=== PATIENT | female | born 1975 | race American Indian/Alaskan Native ===

== ENCOUNTER 2018-04-01 10:06 | Emergency (ER) | payer MEDICAID, SELFPAY ==
--- NOTE | 2018-04-01 11:10 | Emergency Department Report ---
ED Eye Problem HPI - General Chief complaint: Eye Problems Stated complaint: LEFT EYE PAIN Time Seen by Provider: 04/01/18 11:09 Source: patient Mode of arrival: Ambulatory Limitations: No Limitations - History of Present Illness Initial comments: 42-year-old female past medical history hypertension presents with complaint of left discomfort and left eye redness since this morning. Denies any trauma denies any foreign body sensation left eye denies any foreign body or liquid splash into the eye getting high. Patient denies headache blurry vision and nausea vomiting chest pain palpitations shortness of breath. Patient is awake alert and oriented 3 not in acute distress. Denies any paresthesias. No slurred speech no facial paresthesias no weakness reported by patient. Patient does not wear contact lenses. MD chief complaint: eye pain, eye redness, eye injury -: This morning Location: left eye Place: home Eye Symptoms: redness Severity: mild Consistency: constant Associated Symptoms: none Treatments Prior to Arrival: none - Related Data Patient Tetanus UTD: Yes Home Medications Medication Instructions Recorded Confirmed Last Taken Ferrous Sulfate 1 tab PO DAILY 09/27/13 09/27/13 09/26/13 Labetalol HCl 100 mg PO BID 09/27/13 09/27/13 09/26/13 22:30 100mg Pnv,Calcium 72/Iron/Folic Acid 1 tab PO DAILY 09/27/13 09/27/13 09/26/13 [Pnv Plus Multivit Tab] Previous Rx's Medication Instructions Recorded Last Taken Type Famotidine [Pepcid] 20 mg PO BID #60 tablet 03/14/14 Unknown Rx HYDROcodone/APAP 5-325 [[place] 1 each PO Q6HR PRN #20 tablet 03/14/14 Unknown Rx 5/325 mg] Hyoscyamine Subl [Levsin Sl] 0.125 mg PO Q6HR #20 tablet 03/14/14 Unknown Rx Ondansetron [Zofran] 4 mg PO Q6HR PRN #20 tablet 03/14/14 Unknown Rx Naphazoline HCl/Pheniramine 1 drop OP Q4H PRN #1 drops 04/01/18 Unknown Rx [Naphcon-A Eye Drops] Allergies Allergy/AdvReac Type Severity Reaction Status Date / Time No Known Allergies Allergy Verified 09/27/13 02:46 ED Review of Systems ROS: Stated complaint: LEFT EYE PAIN Other details as noted in HPI Constitutional: denies: chills, fever Eyes: as per HPI. denies: eye pain, eye discharge, vision change ENT: denies: ear pain, throat pain Respiratory: denies: cough, shortness of breath, wheezing Cardiovascular: denies: chest pain, palpitations Endocrine: no symptoms reported Gastrointestinal: denies: abdominal pain, nausea, diarrhea Genitourinary: denies: urgency, dysuria, discharge Musculoskeletal: denies: back pain, joint swelling, arthralgia Skin: denies: rash, lesions Neurological: denies: headache, weakness, paresthesias Psychiatric: denies: anxiety, depression Hematological/Lymphatic: denies: easy bleeding, easy bruising ED Past Medical Hx - Past Medical History Previous Medical History?: Yes Hx Hypertension: Yes Hx Congestive Heart Failure: No Hx Diabetes: No Hx Deep Vein Thrombosis: No Hx Renal Disease: No Hx Sickle Cell Disease: No Hx Seizures: No Hx Asthma: No Hx COPD: No Hx HIV: No - Surgical History Past Surgical History?: Yes Hx Cholecystectomy: Yes - Social History Smoking Status: Never Smoker Substance Use Type: Alcohol, Prescribed - Medications Home Medications: Home Medications Medication Instructions Recorded Confirmed Last Taken Type Ferrous Sulfate 1 tab PO DAILY 09/27/13 09/27/13 09/26/13 History Labetalol HCl 100 mg PO BID 09/27/13 09/27/13 09/26/13 22:30 History 100mg Pnv,Calcium 72/Iron/Folic Acid 1 tab PO DAILY 09/27/13 09/27/13 09/26/13 History [Pnv Plus Multivit Tab] Famotidine [Pepcid] 20 mg PO BID #60 tablet 03/14/14 Unknown Rx HYDROcodone/APAP 5-325 [[place] 1 each PO Q6HR PRN #20 tablet 03/14/14 Unknown Rx 5/325 mg] Hyoscyamine Subl [Levsin Sl] 0.125 mg PO Q6HR #20 tablet 03/14/14 Unknown Rx Ondansetron [Zofran] 4 mg PO Q6HR PRN #20 tablet 03/14/14 Unknown Rx Naphazoline HCl/Pheniramine 1 drop OP Q4H PRN #1 drops 04/01/18 Unknown Rx [Naphcon-A Eye Drops] ED Physical Exam - General Limitations: No Limitations General appearance: alert, in no apparent distress - Head Head exam: Present: atraumatic, normocephalic - Eye Eye exam: Present: normal appearance, PERRL, EOMI Pupils: Present: normal accommodation - Expanded Eye Exam Expanded Pupils: Regular, Round: Bilateral, Reactive: Bilateral Sclera/Conjunctival: Injection: Left, Hemorrhage: Left (left subconjunctival hemorrhage on the medial aspect of left cornea) Visual acuity (R) = 20/: 20 Visual acuity (L) = 20/: 20 With correction: No - ENT ENT exam: Present: mucous membranes moist - Neck Neck exam: Present: normal inspection - Respiratory Respiratory exam: Present: normal lung sounds bilaterally. Absent: respiratory distress - Cardiovascular Cardiovascular Exam: Present: regular rate, normal rhythm. Absent: systolic murmur, diastolic murmur, rubs, gallop - GI/Abdominal GI/Abdominal exam: Present: soft, normal bowel sounds - Extremities Exam Extremities exam: Present: normal inspection - Back Exam Back exam: Present: normal inspection - Neurological Exam Neurological exam: Present: alert, oriented X3 - Psychiatric Psychiatric exam: Present: normal affect, normal mood - Skin Skin exam: Present: warm, dry, intact, normal color. Absent: rash ED Course Vital Signs 04/01/18 10:15 Temperature 98.8 F Pulse Rate 79 Respiratory 20 Rate Blood Pressure 160/95 O2 Sat by Pulse 100 Oximetry ED Medical Decision Making - Medical Decision Making A/P: Subconjunctival hemorrhage left eye 1-no fluorescein uptake on fluorescein exam 2-intraocular pressure less than 303. IOP left eye11, 23, 22. Patient has no clinical signs of glaucoma at this time. I advised patient to return to the ED if she has any associated headache nausea vomiting decrease in vision and severe blurry vision with associated redness or floaters in left eye. Patient stated she understood my instructions. 3-artificial tears 4- follow-up with ophthalmology 5- vital signs stable for discharge. Critical care attestation.: If time is entered above; I have spent that time in minutes in the direct care of this critically ill patient, excluding procedure time. ED Disposition Clinical Impression: Subconjunctival hemorrhage of left eye Disposition: DC-01 TO HOME OR SELFCARE Is pt being admited?: No Does the pt Need Aspirin: No Condition: Stable Instructions: Subconjunctival Hemorrhage (ED) Prescriptions: Naphazoline HCl/Pheniramine [Naphcon-A Eye Drops] 1 drop OP Q4H PRN #1 drops PRN Reason: Dry Eye(S) Referrals: MACY ESTRADA MD [Staff Physician] - 3-5 Days ELYSIA GUZMAN MD [Staff Physician] - 3-5 Days Forms: Work/School Release Form(ED) Time of Disposition: 11:39
[2018-04-01] MEDS ORDERED: FUL-GLO OP ONE (11:21)
[2018-04-01] MEDS ORDERED: BSS ONE (11:21)
[2018-04-01] MEDS ORDERED: TETRACAINE 0.5% ONE (11:21)
[2018-04-01] MEDS ORDERED: BSS 1 DROPS, TETRACAINE 0.5% 1 DROPS, FUL-GLO 0.6 MG OS ONE (11:21)
[2018-04-01 11:56] VITALS: BP 142/96
== END 2018-04-01 11:54 | disposition home or self-care (01) ==
LOC: ED 10:06
DX: H11.32 Conjunctival hemorrhage, left eye (principal); I10 Essential (primary) hypertension; Z90.49 Acquired absence of other specified parts of digestive tract; X58.XXXA Exposure to other specified factors, initial encounter; Y93.89 Activity, other specified; Y99.8 Other external cause status; Y92.89 Other specified places as the place of occurrence of the external cause
CPT/HCPCS: 99282